=== PATIENT | female | born 1990 | race Hispanic/Latino ===

== ENCOUNTER 2019-03-03 10:37 | Inpatient (IN) | payer OTHER ==
[2019-03-03 12:08] VITALS: BMI 41.8
[2019-03-03] MEDS ORDERED: Promethazine HCl 25 MG/ML VIAL IM PRN ×2 (12:17→21:34)
[2019-03-03] MEDS ORDERED: Ondansetron PF 4 MG/2 ML Vial IVP PRN ×2 (12:17→21:34)
[2019-03-03] MEDS ORDERED: hydrALAZINE 20 MG/ML VIAL SLOW IVP PRN (12:17)
[2019-03-03] MEDS ORDERED: Bicitra 30 ML UDCUP PO SCH (12:30)
[2019-03-03] MEDS ORDERED: CEFAZOLIN 2 GM in Premix Bag 1 BAG IVPB SCH (12:30)
[2019-03-03 13:12] LABS: Hemoglobin 7.2 g/dL (12.0-16.0); Mean Corpuscular HGB CONC 31.6 g/dL (32.0-36.0); Mean Corpuscular Hemoglobin 18.8 pg (27.0-31.0); Mean Corpuscular Volume 59.4 fL (78.0-98.0); Platelet Count 156 thou/uL (130-400); RBC Distribution Width 17.6 % (11.5-14.5); Red Blood Cell (RBC) Count 3.85 mill/uL (4.20-5.40); White Blood Cell (WBC) Count 11.4 thou/uL (4.8-10.8)
[2019-03-03 13:48] LABS: HBSAg Index 0.13 S/CO (0-0.99); Hep B Surf Ag Non-Reactive S/CO (NonReactive); Syphilis Antibody Nonreactive (Nonreactive); Syphilis Antibody Index 0.11 S/CO (<1.00 Non-Reactive)
[2019-03-03] MEDS: Lactated Ringer's 1,000 ML IV SCH ×2 (13:50→15:00)
--- NOTE | 2019-03-03 18:28 | PDOC.LDHP ---
Labor and Delivery H&P Chief complaint: scheduled section HPI: 29 y/o at 38 and 3/7 weeks presents from clinic with a dx of Gest DM, and testing today with 4/8 BPP and borderline oligohydramnios. Current gestational age (weeks): 38 Due date: 03/14/19 Grav: 6 Para: 5 Current complications: gestational diabetes, oligohydramnios, other ( hx of x 1.) Abnormal US findings: Yes (Oligohydramnios, 4/8 BPP on 03/03/19) Current medications: pre- vitamins Previous surgical history: low tranverse CS Allergies/Adverse Reactions: Allergies Allergy/AdvReac Type Severity Reaction Status Date / Time shrimp Allergy Severe Hives Verified 06/23/16 17:52 Social history: none - Physical Exam Vital signs reviewed and normal: yes General: NAD, resting Heart: RRR Lungs: nonlabored breathing Abdomen: gravid Extremeties: no edema FHT: category 1 - Assessment L&D Assessment: scheduled repeat section - Plan Plan: admit to L&D, to OR for section
[2019-03-03] MEDS ORDERED: Bicitra 30 ML UDCUP ONE ×2 (19:35→19:36)
[2019-03-03] MEDS ORDERED: MORPHINE 5 MG/10 ML PF VIAL ONE (19:37)
[2019-03-03] MEDS ORDERED: Dexamethasone 4 mg/ml Vial ONE (19:38)
[2019-03-03] MEDS ORDERED: Oxytocin 10 UNITS/ML VIAL ONE ×4 (19:38→19:48)
[2019-03-03] MEDS ORDERED: diphenhydrAMINE 50 MG/ML VIAL ONE (19:38)
[2019-03-03] MEDS ORDERED: Ketorolac Tromethamine 30 MG/ML VIAL ONE (19:38)
[2019-03-03] MEDS ORDERED: Ondansetron PF 4 MG/2 ML Vial ONE (19:38)
[2019-03-03] MEDS ORDERED: PHENYLEPHRINE-NS 100 MCG/ML 10 ML SYRINGE ONE (19:48)
[2019-03-03] MEDS ORDERED: ePHEDrine/0.9% NaCl/PF SYRINGE 50 mg/10 ml ONE (20:11)
[2019-03-03] MEDS ORDERED: Promethazine HCl 25 MG SUPP PR PRN (21:34)
[2019-03-03] MEDS ORDERED: Naloxone HCl 0.4 mg/ml Vial IVP PRN ×2 (21:34)
[2019-03-03] MEDS ORDERED: Ketorolac Tromethamine 30 MG/ML VIAL IVP PRN (21:34)
[2019-03-03] MEDS ORDERED: Naloxone HCl 0.4 mg/ml Vial IV PRN (21:34)
[2019-03-03] MEDS ORDERED: diphenhydrAMINE 50 MG/ML VIAL IVP PRN (21:34)
[2019-03-03] MEDS ORDERED: Communication Order-Pharmacy FS SCH (21:45)
[2019-03-04] MEDS ORDERED: NS / Oxytocin 40 units/1000ml 1,000 ML IV SCH (00:32)
[2019-03-04] MEDS ORDERED: Promethazine HCl 25 MG/ML VIAL IM PRN (00:32)
[2019-03-04] MEDS ORDERED: Misoprostol 200 MCG TAB PR PRN (00:32)
[2019-03-04] MEDS ORDERED: Ondansetron PF 4 MG/2 ML Vial IVP PRN (00:32)
[2019-03-04] MEDS ORDERED: hydrALAZINE 20 MG/ML VIAL SLOW IVP PRN (00:32)
[2019-03-04] MEDS ORDERED: Zolpidem Tartrate 5 MG TAB PO PRN (00:32)
[2019-03-04] MEDS ORDERED: Simethicone Chewable 80 MG TAB PO PRN (00:32)
[2019-03-04] MEDS ORDERED: Bisacodyl 10 MG SUPP PR PRN (00:32)
[2019-03-04] MEDS ORDERED: diphenhydrAMINE 25 MG CAP PO PRN (00:32)
[2019-03-04] MEDS ORDERED: Methylergonovine 0.2 MG/ML VIAL IM PRN (00:32)
[2019-03-04] MEDS ORDERED: Lanolin Ointment 7 GM TUBE TOP PRN (00:32)
[2019-03-04] MEDS ORDERED: Docusate Calcium (SURFAK) 240 MG CAP PO SCH (00:45)
[2019-03-04] MEDS ORDERED: Enoxaparin Sodium 40 MG/0.4 ML SYRINGE SC SCH (03:00)
[2019-03-04 06:21] LABS: Mean Corpuscular HGB CONC 31.3 g/dL (32.0-36.0); Mean Corpuscular Hemoglobin 19.1 pg (27.0-31.0); Mean Corpuscular Volume 61.1 fL (78.0-98.0); Mean Platelet Volume 11.4 fL (7.4-10.4); Platelet Count 155 thou/uL (130-400); RBC Distribution Width 20.4 % (11.5-14.5); Red Blood Cell (RBC) Count 4.16 mill/uL (4.20-5.40); White Blood Cell (WBC) Count 20.6 thou/uL (4.8-10.8)
[2019-03-04] MEDS ORDERED: Measles/Mumps/Rubella 10 MCG/0.5 ML VIAL SC ONE (09:00)
[2019-03-04] MEDS ORDERED: Varicella virus, LIVE 0.5 ML VIAL SC ONE (09:00)
[2019-03-04] MEDS ORDERED: Adacel (T-DAP) 0.5 ML SYRINGE IM ONE (09:00)
[2019-03-04] MEDS ORDERED: HYDROcodone/Acetaminophen 5/325 mg Tablet PO PRN (09:45)
[2019-03-04] MEDS: Enoxaparin Sodium 40 MG/0.4 ML SYRINGE SC SCH (10:00)
[2019-03-04] MEDS: Prenatal Vitamin 1 TAB PO SCH (10:00)
[2019-03-04] MEDS: Docusate Calcium (SURFAK) 240 MG CAP PO SCH ×2 (10:00→20:46)
[2019-03-04] MEDS ORDERED: FLU VACC QS2019-20(6MOS UP)/PF 60 MCG/0.5 ML SYRINGE IM ONE (12:15)
[2019-03-04] MEDS: HYDROcodone/Acetaminophen 5/325 mg Tablet PO PRN ×2 (12:49→18:50)
[2019-03-04] MEDS: Ibuprofen 800 MG TAB PO SCH (18:49)
--- NOTE | 2019-03-04 20:48 | PDOC.PP ---
Post Progress Note Post Day #: 1 PO intake tolerated: yes Flatus: yes Ambulation: yes Vital Signs (12 hours) Temp Pulse Resp BP Pulse Ox 03/04/19 19:15 99.1 F 94 12 128/73 97 03/04/19 16:37 98.9 F 104 H 12 123/64 95 03/04/19 11:32 98.3 F 74 20 127/74 Weight Weight 244 lb - Physical Examination General: NAD Cardiovascular: no m/r/g, RRR Respiratory: clear to auscultation bilaterally, non-labored breathing Abdominal: + bowel sounds, lochia, no distention Extremities: negative homans (B) Skin: CS incision dry & intact, no rash Neurological: no gross focal deficits Psychiatric: A&Ox3, normal affect Result Diagrams: 03/04/19 05:08 Additional Labs: Post Labs Blood Type O POSITIVE 03/03/19 12:53 Hep Bs Antigen Non-Reactive S/CO (NonReactive) 03/03/19 12:53
--- NOTE | 2019-03-05 02:08 | OP ---
DATE OF PROCEDURE: 03/03/2019 TIME OF SERVICE: At 2027 hours, [place] Daylight Savings Time. PREOPERATIVE DIAGNOSES: Intrauterine at 38 weeks and 3 days with gestational diabetes, morbid obesity, severe anemia, oligohydramnios, and nonreassuring testing today with a 4/8 biophysical profile in clinic. POSTOPERATIVE DIAGNOSES: Intrauterine at 38 weeks and 3 days with gestational diabetes, morbid obesity, severe anemia, oligohydramnios, and nonreassuring testing today with a 4/8 biophysical profile in clinic. PROCEDURE PERFORMED: Repeat low-transverse section. FINDINGS: Viable female weighing 3234 g or 7 pounds 2 ounces, Apgars 8 and 9. QUANTITATIVE BLOOD LOSS: 432 mL. COMPLICATIONS: None. DETAILS OF THE PROCEDURE: The patient was consented and taken back to the operating room where spinal anesthesia was found to be adequate. She was then prepped and draped in the normal sterile fashion. A timeout was performed by the entire operative team. The incision was then marked with a marking pen tested using sharp pickups. An incision was then made with a scalpel. The incision was carried through the adipose tissue down to the underlying rectus fascia using both sharp dissection as well as cautery. Once the fascia was identified, it was incised in the midline and then the fascial incision was carried through in both lateral directions using sharp as well as cautery dissection techniques. Next, the superior aspect of the rectus fascia was grasped with 2 Yessi clamps, which was tented up and the rectus muscles were dissected off using blunt dissection as well as cautery dissection. Similarly, the inferior aspect of the fascial incision was grasped with 2 Yessi clamps, tented up and the rectus muscles were dissected off bluntly as well as sharply. Next, the rectus muscles were in the midline and the peritoneum identified. The peritoneum was then carefully grasped with 2 hemostats and entered sharply. The peritoneal incision was extended superiorly and inferiorly and bladder blade was placed in the lower abdomen. At this point, the uterus was identified and the bladder flap was then developed using pickups with teeth as well as Metzenbaum scissors in both lateral directions. The bladder flap was then dissected downwards using the collet making machine operator's finger as well as Metzenbaum scissors. The bladder blade was replaced. The lower uterine segment was then identified and entered sharply using a clean scalpel. The uterine incision was then dissected downwards until thin layer of muscle remained and this was entered bluntly using a hemostat to avoid any injury to the baby. The uterine incision was then stretched using two fingers in both lateral directions. An amniotomy was performed artificially using a hemostat and the baby was delivered using fundal pressure in a gentle fashion. Once out, the baby's mouth and nose were bulb suctioned, cord clamped and cut, and the baby was handed to waiting attendants. Next, the uterus was exteriorized, cleared of all clots and debris and the uterine incision was repaired with #1 Monocryl in a running locking fashion. A 2nd suture of the same type was used to obtain complete hemostasis at the uterine incision. The bladder flap was reapproximated using 3-0 Monocryl. Next, patient's left and right adnexa were inspected and appeared to be within normal limits. The posterior cul-de-sac was blotted dry and hemostasis assured. One more look at the uterine incision demonstrated hemostasis. Next, the uterus was replaced back within the abdomen. The peritoneum was reapproximated using 2-0 Monocryl without difficulty. The rectus muscles were then allowed to come back together and 0 chromic was used to aid in reapproximation of the muscle as necessary. The rectus fascia was then reapproximated in a running fashion using 0 Vicryl suture. The adipose tissue was then examined and appeared to be well approximated without any obvious separations. Finally, the skin was reapproximated with 3-0 Monocryl on a Benson needle without difficulty and Dermabond adhesive was applied to the skin. Once the glue was dry, the drapes were removed and the patient was transferred to an ambulatory bed where she was taken to recovery awake and in stable condition. Sponge, lap, and needle counts were correct x3. Job ID: [id number]
[2019-03-05] MEDS: Ibuprofen 800 MG TAB PO SCH ×3 (05:47→21:20)
[2019-03-05] MEDS ORDERED: Ibuprofen 800 MG TAB PO SCH (06:00)
[2019-03-05] MEDS: Docusate Calcium (SURFAK) 240 MG CAP PO SCH ×2 (10:08→21:21)
[2019-03-05] MEDS: Enoxaparin Sodium 40 MG/0.4 ML SYRINGE SC SCH (10:08)
[2019-03-05] MEDS: Prenatal Vitamin 1 TAB PO SCH (10:08)
--- NOTE | 2019-03-05 16:21 | PDOC.PP ---
Post Progress Note Post Day #: 2 PO intake tolerated: yes Flatus: yes Ambulation: yes Vital Signs (12 hours) Temp Pulse Resp BP Pulse Ox 03/05/19 12:05 98.4 F 82 14 119/60 96 03/05/19 07:45 98.2 F 84 18 115/78 94 L Weight Weight 244 lb - Physical Examination General: NAD Cardiovascular: no m/r/g, RRR Respiratory: clear to auscultation bilaterally Abdominal: + bowel sounds, lochia Extremities: negative homans (B) Skin: CS incision dry & intact, no rash Neurological: no gross focal deficits Psychiatric: A&Ox3, normal affect (DC to home planeed for tomorrow due to jaundice.) Result Diagrams: 03/04/19 05:08 Additional Labs: Post Labs Blood Type O POSITIVE 03/03/19 12:53 Hep Bs Antigen Non-Reactive S/CO (NonReactive) 03/03/19 12:53
[2019-03-06] MEDS: Ibuprofen 800 MG TAB PO SCH (06:02)
[2019-03-06 08:39] VITALS: BP 136/65; TEMP 98.3
[2019-03-06] MEDS: Docusate Calcium (SURFAK) 240 MG CAP PO SCH (09:38)
[2019-03-06] MEDS: Prenatal Vitamin 1 TAB PO SCH (09:38)
[2019-03-06] MEDS: Enoxaparin Sodium 40 MG/0.4 ML SYRINGE SC SCH (09:38)
== END 2019-03-06 12:26 | disposition home or self-care (01) | DRG 787 ==
LOC: L&D 10:37 → 3SE 03-04 00:38
PROVIDERS: ADMIT Obstetrics & Gynecology; ATTEND Obstetrics & Gynecology
PROC: 10D00Z1 Extraction of Products of Conception, Low, Open Approach (ICD-10-PCS; principal; 2019-03-03)
DX: O34.211 Maternal care for low transverse scar from previous cesarean delivery (principal); O41.03X0 Oligohydramnios, third trimester, not applicable or unspecified; O99.02 Anemia complicating childbirth; D64.9 Anemia, unspecified; O99.214 Obesity complicating childbirth; E66.01 Morbid (severe) obesity due to excess calories; O76 Abnormality in fetal heart rate and rhythm complicating labor and delivery; Z3A.38 38 weeks gestation of pregnancy; O24.420 Gestational diabetes mellitus in childbirth, diet controlled; Z37.0 Single live birth
CPT/HCPCS: 36415; 36430; 51702; 85027; 86780; 86850; 86900; 86901; 87340; J0690; J1100; J1200; J1650; J1885; J2274; J2405; J2590; P9016

== ENCOUNTER 2019-11-17 14:44 | Emergency (ER) | payer OTHER ==
[2019-11-18 13:18] LABS: SARS-CoV-2 MS2 Positive; SARS-CoV-2 N Gene Positive; SARS-CoV-2 S Gene Positive; SARS-CoV-2 orf1ab Positive
== END 2019-11-17 15:27 | disposition home or self-care (01) ==
LOC: ERS 14:44
DX: U07.1 COVID-19 (principal)
CPT/HCPCS: 87635; 99283; U0003